=== PATIENT | female | born 1980 | race Caucasian/White ===

== ENCOUNTER 2019-07-12 12:27 | Emergency (ER) | payer BC, SELFPAY ==
[2019-07-12 12:28] VITALS: BP 163/92; PULSE 90; RESP 20; TEMP 36.9; O2SAT 94; BMI 60.7
--- NOTE | 2019-07-12 12:39 | EKG12_ITS ---
Test Reason : SOB Blood Pressure : / mmHG Vent. Rate : 074 BPM Atrial Rate : 074 BPM P-R Int : 144 ms QRS Dur : 088 ms QT Int : 392 ms P-R-T Axes : 024 043 055 degrees QTc Int : 435 ms Normal sinus rhythm Normal ECG Confirmed by JONATHAN TAN MD ([id number]), news editor LIA PEGUERO ([id number]) on 07/16/2019 9:16:31 AM Referred By: CLAIR Confirmed By:JONATHAN TAN MD
--- NOTE | 2019-07-12 12:42 | ED.VIS.GEN ---
History of Present Illness Chief Complaint: Shortness of Breath Informant: Patient Onset: Weeks Maximum Severity: Mild Narrative: Coronavirus national emergency and the fact the patient has no exposures Presents complaining of shortness of breath for over a week initially she states she has what sounds like maybe a URI with a cough that has resolved after being placed on prednisone by her outpatient providers, she has a persistent sense of shortness of breath, she has no history of [place] PE DVT COPD or any cardiopulmonary disorder, indicates she is able to lay flat she is able to exert herself without shortness with chest pain but has just this persistent sense that she cannot catch her breath she currently has no cough or fever no exposures Past Medical History - Allergies and Home Meds Allergies/Adverse Reactions: Allergies No Known Allergies Allergy (Verified 07/12/19 12:30) Primary Care Physician: Regina Abarca NP-C [Primary Care Provider] - Past Medical History: None Smoking Status: Never smoker Review of Systems General: Denies: Chills, Fever, Sweats Eyes: Denies: Visual changes - bilaterally, Diplopia ENT: Denies: Rhinorrhea, Sore throat Cardiovascular: Denies: Chest pain, Palpitations Respiratory: Reports: Dyspnea. Denies: Cough, Dyspnea on exertion Gastrointestinal: Denies: Abdominal pain, Nausea, Vomiting, Diarrhea, Melena, Hematochezia Genitourinary: Denies: Dysuria, Hematuria, Frequency Musculoskeletal: Denies: Back pain, Extremity Pain Skin: Denies: Rash, Wounds Neurological: Denies: Headache, Weakness, Numbness Physical Exam Vital Signs/Narrative: Vital Signs Temp Pulse Resp BP Pulse Ox 07/12/19 12:28 98.5 F 90 20 H 163/92 H 94 General: Well nourished, Well developed, No Acute Distress Head: Normocephalic, Atraumatic Eyes: Perrl, EOMI ENT: Moist mucous membranes, No rhinorrhea Neck: Supple, Nontender Cardiovascular: Regular rate, Regular rhythm, No murmurs Respiratory: No distress, CTA bilaterally, Chest nontender Abdomen: Soft, Nontender, Nondistended, Normal bowel sounds Back: Nontender, Normal Inspection Extremities: Nontender, No edema Skin: Normal color, No rash Neurological: Alert, Oriented x3, Cranial nerves II-XII grossly intact, Normal Strength, Normal Sensation Psychological: Normal affect, Normal Mood Diagnostic/Tx/Re-eval - Medical Decision Making Patient is resting company in the bed her vital signs are unremarkable her pulse ox is normal she is in no distress she is a very large woman she has no signs of pneumonia CHF COPD etc. given all the above given her history screening ED evaluation is obtained EKG shows a sinus rhythm rate of about 70 no acute injury pattern intervals within normal range, the chest x-ray ED evaluation lab tests including troponin BNP d-dimer negative, reevaluation she is resting company the bed she can lay at almost 30 degrees with no symptomatology I explained to her the sense of shortness of breath is unclear there is no signs of [place] PE DVT pneumonia she has no coronavirus exposures and the cough that she had has gone away since she was started on the prednisone, understands the differential is extensive and the exact etiology has not been established, at this time she is comfortable discharge home follow-up with her outpatient providers return for change in symptoms Home stable Final impression dyspnea etiology unclear ED Disposition - Plan for ED Patient: Diagnosis: Dyspnea Instructions: BRONCHITIS, No Antibiotic (Adult) Referrals: Regina Abarca NP-C [Primary Care Provider] -
[2019-07-12] MEDS: Ipratropium/Albuterol Sulfate 3 ML AMPUL.NEB INHALATION (12:56)
[2019-07-12 12:57] VITALS: PULSE 82; RESP 18
[2019-07-12 13:12] LABS: Absolute Lymphocyte Count 2.08 X10^3/uL (0.83-4.51); Basophil# 0.03 X10^3/uL; Basophil% 0.3 % (0-1); Eosinophil# 0.36 X10^3/uL; Eosinophils% 3.1 % (0-5); Hematocrit 38.4 % (37-47); Hemoglobin 12.8 g/dL (12.0-15.0); Lymphocyte # 2.08 X10^3/ul (4.0); Lymphocyte % 17.7 % (19-41); Mean Corp Hgb Conc 33.3 g/dL (32-36); Mean Corpuscular Hgb 30.3 pg (27.0-32.0); Monocyte# 0.26 X10^3/uL; Monocyte% 2.2 % (0-10); NRBC Flagged by Analyzer 0 % (0-5); Neutrophil # 8.97 X10^3/uL (2.7-7.7); Neutrophil % 76.4 % (47-70); Platelet Count 294 K/mm3 (150-450); RBC Distribution Width CV 13.6 % (11.6-14.6); RBC Distribution Width SD 45.1 fl (35.1-43.9); Red Blood Count 4.22 M/mm3 (4.2-5.4); White Blood Count 11.7 K/mm3 (4.4-11.0)
--- NOTE | 2019-07-12 13:12 | RAD_ITS ---
STUDY: X-RAY CHEST REASON FOR EXAM: Female, 38 years old. Shortness of breath TECHNIQUE: Frontal and lateral views of the chest COMPARISON: None. FINDINGS: The lungs are clear. There are no pleural effusions. There is no pneumothorax. The heart is normal in size. The visualized osseous structures are within normal limits. RAD/Chest PA and Lateral IMPRESSION: No acute thoracic pathology. Electronically Signed: Jordan Sorto, at 13:28 EDT Tel , Service support ,
[2019-07-12 13:23] LABS: D-Dimer Quantitative (DVT/PE) 0.36 FEU/ug/m (0.27-0.49)
[2019-07-12 13:30] LABS: Anion Gap 5 (5-15); BUN 13 mg/dL (7-18); BUN/Creat Ratio 17.9 RATIO (10-20); Calcium,Total 9.1 mg/dL (8.5-10.1); Chloride 107 mmol/L (98-107); Creatinine, Serum 0.73 mg/dL (0.55-1.02); EST Glomerular Filtration Rate 96 mL/min (>60); Est Glom Filt Rate - Afr Amer 116 mL/min (>60); Estimated Creatinine Clearance 76.53 ml/min; Glucose 128 mg/dL (74-106); Potassium 3.9 mmol/L (3.5-5.1); Sodium Level 138 mmol/L (136-145)
[2019-07-12 13:31] LABS: BNP,B-Type NATRIURETIC PEPTIDE 54.1 pg/mL (0-100)
[2019-07-12 13:42] VITALS: BP 133/70; PULSE 75; RESP 22; O2SAT 97
== END 2019-07-12 13:48 | disposition home or self-care (01) ==
LOC: ED 12:58
PROVIDERS: Emergency Provider Emergency Medicine; PCP Nurse Practitioner Family
DX: R06.00 Dyspnea, unspecified (principal); Z79.899 Other long term (current) drug therapy
CPT/HCPCS: 71046; 80048; 83880; 84484; 85025; 85379; 93005; 94640; 99284; A4216